=== PATIENT | female | born 1980 | race African-American/Black ===

== ENCOUNTER 2017-08-13 16:01 | Emergency (ER) | payer OTHER ==
[2017-08-13 16:21] VITALS: BP 122/78; PULSE 83; TEMP 98.5; BMI 47.0
[2017-08-13] MEDS ORDERED: KETOROLAC TROMETHAMINE 60 MG/2 ML VIAL IM ONE (17:29)
[2017-08-13] MEDS ORDERED: KETOROLAC TROMETHAMINE 60 MG/2 ML VIAL ONE (17:32)
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
== END 2017-08-13 18:38 | disposition home or self-care (01) ==
LOC: JERFT 16:01
PROC: 3E0233Z Introduction of Anti-inflammatory into Muscle, Percutaneous Approach (ICD-10-PCS; principal; 2017-08-13)
DX: Z04.1 Encounter for examination and observation following transport accident (principal); M54.5 Low back pain; Z68.42 Body mass index [BMI] 45.0-49.9, adult; E66.01 Morbid (severe) obesity due to excess calories; V43.62XA Car passenger injured in collision with other type car in traffic accident, initial encounter; Y93.89 Activity, other specified; Y92.410 Unspecified street and highway as the place of occurrence of the external cause
CPT/HCPCS: 99281-25